=== PATIENT | male | born 1975 | race Caucasian/White ===

== ENCOUNTER 2018-01-14 04:36 | Emergency (ER) | payer BC ==
[~2018-01-14] VITALS: Ht 182.9 cm; Wt 79.5 kg
[2018-01-14 04:42] VITALS: Ht 182.9 cm; Wt 79.5 kg
[2018-01-14 06:23] VITALS: BP 119/70
== END 2018-01-14 06:23 | disposition home or self-care (01) ==
LOC: ED 04:36
DX: M54.42 Lumbago with sciatica, left side (principal)
CPT/HCPCS: J1885; J2270; J2930